=== PATIENT | male | born 1965 | race African-American/Black ===

== ENCOUNTER → 2017-05-19 | Outpatient (CLI) | payer OTHER ==
[~2017-05-19] MED LIST: ATORVASTATIN CA80 MG PO; BAYER ASPIRIN325 M1 PO; FLOMAX0.4 M1 PO; HYDRALAZINE HCL25 MG PO; KEFLEX500 MG PO; LOSARTAN-HCTZ1 EAC2 PO; METOPROLOL SUCC50 MG PO; METOPROLOL TAR25 MG PO; NIFEDIPINE ER30 MG PO; OMEPRAZOLE20 M1 PO
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
== END | disposition home or self-care (01) ==
LOC: CMRI 15:57
DX: M51.16 Intervertebral disc disorders with radiculopathy, lumbar region (principal); K21.0 Gastro-esophageal reflux disease with esophagitis; M48.06 Spinal stenosis, lumbar region; M46.96 Unspecified inflammatory spondylopathy, lumbar region
CPT/HCPCS: 72148